=== PATIENT | male | born 1960 | race Caucasian/White ===

== ENCOUNTER 2018-01-30 13:31 | Emergency (ER) | payer MEDICAID ==
[~2018-01-30] VITALS: Ht 175.3 cm; Wt 95.5 kg
[~2018-01-30 13:31] MED LIST: ASPI-556 PO; EZET1TAB3 PO; LOSA25TA41 PO; OMEP20 PO
[2018-01-30 13:42] VITALS: BP 153/96
[2018-01-30] MEDS ORDERED: KETOROLAC TROMETHAMINE 60 MG/2 ML VIAL IM ONE (15:45)
== END 2018-01-30 17:45 | disposition left against medical advice (07) ==
LOC: EMS 13:32
DX: M25.522 Pain in left elbow (principal); I10 Essential (primary) hypertension; I25.2 Old myocardial infarction; I25.10 Atherosclerotic heart disease of native coronary artery without angina pectoris; F17.210 Nicotine dependence, cigarettes, uncomplicated; Z88.0 Allergy status to penicillin; Z88.1 Allergy status to other antibiotic agents; Z88.5 Allergy status to narcotic agent; Z79.82 Long term (current) use of aspirin
CPT/HCPCS: 73080; 73090; 73110; 96372; 99283; 99406; J1885